=== PATIENT | male | born 1965 | race Caucasian/White ===

== ENCOUNTER 2019-03-21 12:41 | Inpatient (IN) | payer OTHER ==
[2019-03-21 19:25] VITALS: BMI 32.3
--- NOTE | 2019-03-21 19:49 | HP ---
CIWA Score Nausea/Vomitin Muscle Tremors: 2 Anxiety: 2 Agitation: 2 Paroxysmal Sweats: 2 Orientation: 0-Oriented Tacttile Disturbances: 2-Mild Itch/Numbness/Burn Auditory Disturbances: 1-Very Mild Visual Disturbances: 1-Very Mild Sensitivity Headache: 2-Mild CIWA-Ar Total Score: 17 - Admission Criteria [facility] Guidelines: Admission for Medically Managed Detox: Requires at least one of the followin. CIWA greater than 12 2. Seizures within the past 24 hours 3. Delirium tremens within the past 24 hours 4. Hallucinations within the past 24 hours 5. Acute intervention needed for co occurring medical disorder 6. Acute intervention needed for co occurring psychiatric disorder 7. Severe withdrawal that cannot be handled at a lower level of care (continued vomiting, continued diarrhea, abnormal vital signs) requiring intravenous medication and/or fluids 8. Patient presents the following: CIWA greater than 12 Admission Criteria Met: Admission criteria met Admitting History and Physical - Smoking History Smoking history: Current every day smoker Have you smoked in the past 12 months: Yes Aproximately how many cigarettes per day: 10 - Alcohol/Substance Use Hx Alcohol Use: Yes (BEER/VODKA) Admission ROS [facility] Chief Complaint: I need detox Allergies/Adverse Reactions: Allergies Allergy/AdvReac Type Severity Reaction Status Date / Time No Known Allergies Allergy Verified 03/21/19 19:07 History of Present Illness: 53 year old man with alcohol dependence presents for detox. His last treatment at [facility] was in 2017 following which he was incarcerated for 2 years. Exam Limitations: Physical Impairment - Ebola screening Have you traveled outside of the country in the last 21 days: No (NN) Have you had contact with anyone from an Ebola affected area: No Have you been sick,other than usual withdrawal symptoms: No Do you have a fever: No - Review of Systems Constitutional: Diaphoresis, Loss of Appetite, Changes in sleep EENT: reports: Blurred Vision, Nose Congestion Respiratory: reports: Cough Cardiac: reports: No Symptoms Reported GI: reports: Diarrhea, Poor Appetite, Poor Fluid Intake, Abdominal cramping : reports: No Symptoms Reported Musculoskeletal: reports: Back Pain, Joint Pain, Other (severe right hip pain) Integumentary: reports: Sweating Neuro: reports: Headache, Numbness, Tingling, Tremors Endocrine: reports: No Symptoms Reported Hematology: reports: No Symptoms Reported Psychiatric: reports: Anxious, Depressed Other Systems: Reviewed and Negative Patient History - Patient Medical History Hx Anemia: No Hx Asthma: Yes Hx Chronic Obstructive Pulmonary Disease (COPD): No Hx Cancer: No Hx Cardiac Disorders: No Hx Congestive Heart Failure: No Hx Hypertension: Yes (not on meds) Hx Hypercholesterolemia: No Hx Pacemaker: No HX Cerebrovascular Accident: Yes (unable to state period of event) Hx Seizures: No Hx Dementia: No Hx Diabetes: No Hx Gastrointestinal Disorders: No Hx Liver Disease: No Hx Genitourinary Disorders: No Hx Sexually Transmitted Disorders: Yes (gonorrhea at age 24) Hx Renal Disease (ESRD): No Hx Thyroid Disease: No Hx Human Immunodeficiency Virus (HIV): No Hx Hepatitis C: No Hx Depression: No Hx Suicide Attempt: No Hx Schizophrenia: No - Patient Surgical History Past Surgical History: Yes Hx Neurologic Surgery: No Hx Cataract Extraction: No Hx Cardiac Surgery: No Hx Lung Surgery: No Hx Breast Surgery: No Hx Breast Biopsy: No Hx Abdominal Surgery: Yes (hernia repair) Hx Appendectomy: Yes (in 1996) Hx Cholecystectomy: No Hx Genitourinary Surgery: No Hx Section: No Hx Orthopedic Surgery: No Anesthesia Reaction: No - PPD History Previous Implant?: No Documented Results: Negative w/o proof Implanted On Prior [facility] Admission?: No PPD to be Administered?: Yes - Smoking Cessation Smoking history: Current every day smoker Have you smoked in the past 12 months: Yes Aproximately how many cigarettes per day: 20 Hx Chewing Tobacco Use: No Initiated information on smoking cessation: Yes 'Breaking Loose' booklet given: 03/21/19 - Substances abused Alcohol Substance route: Oral Frequency: Daily Amount used: 3 PINTS OF VODKA, 5 BEERS (24OZ EACH) Age of first use: 29 Date of last use: 03/21/19 Heroin Substance route: Inhalation Frequency: Daily Amount used: 3 BAGS Age of first use: 29 Date of last use: 03/19/19 Non-Rx Methadone Substance route: Oral Frequency: Daily Amount used: 50 MG Age of first use: 43 Date of last use: 02/08/19 Marijuana/Hashish Substance route: Smoking Frequency: 3-6 times per week Amount used: $10 BAGS Age of first use: 29 Date of last use: 03/14/19 Admission Physical Exam [facility] - Vital Signs Vital Signs: Vital Signs - 24 hr 03/21/19 03/21/19 19:09 19:33 Temperature 99.9 F H 99.9 F H Pulse Rate 92 H 92 H Respiratory 18 18 Rate Blood Pressure 131/64 131/64 - Physical General Appearance: Yes: No Apparent Distress HEENTM: Yes: Hearing grossly Normal, Normocephalic, Normal Voice, LORRI Respiratory: Yes: Chest Non-Tender, Lungs Clear Neck: Yes: No masses,lesions,Nodules, Supple Breast: Yes: Breast Exam Deferred Cardiology: Yes: Regular Rhythm, Regular Rate, S1, S2 Abdominal: Yes: Normal Bowel Sounds, Soft, Hernia Genitourinary: Yes: Within Normal Limits Back: Yes: Normal Inspection Musculoskeletal: Yes: Back pain, Other (right hip pain) Extremities: Yes: Tremors, Other (bilateral LE stasis changes) Neurological: Yes: dry cleaning manager II-XII NML intact, Fully Oriented, Alert Integumentary: Yes: Moist Lymphatic: Yes: Within Normal Limits - Diagnostic (1) Alcohol dependence, uncomplicated Current Visit: Yes Status: Acute (2) Abdominal hernia Current Visit: Yes Status: Acute Qualifiers: Hernia type: umbilical (3) Right hip pain Current Visit: Yes Status: Chronic (4) Unsteady gait Current Visit: Yes Status: Chronic (5) Nicotine dependence Current Visit: Yes Status: Acute Qualifiers: Nicotine product type: cigarettes Substance use status: uncomplicated Qualified Code(s): F17.210 - Nicotine dependence, cigarettes, uncomplicated Cleared for Admission S - Detox or Rehab [facility] Level of Care: Medically Managed Detox Regimen/Protocol: Librium Claeared for Rehab Admission: No Breathalyzer - Breathalyzer Breathalyzer: 0.074 Urine Drug Screen - Test Device Lot number: [id number] Expiration date: 10/07/20 - Control Is test valid?: Yes - Results Drug screen NEGATIVE: No Urine drug screen results: MET-Methamphetamine, BZO-Benzodiazepines Inpatient Rehab Admission - Rehab Decision to Admit Inpatient rehab admission?: No
[2019-03-21] MEDS ORDERED: NICOTINE POLACRILEX 2 MG GUM BUC PRN (19:55)
[2019-03-21] MEDS ORDERED: MAG HYDROX/AL HYDROX/SIMETH 30 ML UNIT-DOSE CUP PO PRN (19:55)
[2019-03-21] MEDS ORDERED: MENTHOL/PHENOL 1 EACH UD MM PRN (19:55)
[2019-03-21] MEDS ORDERED: METHOCARBAMOL 500 MG TABLET PO PRN (19:55)
[2019-03-21] MEDS ORDERED: hydrOXYzine PAMOATE 25 MG CAPSULE (FP) PO PRN (19:55)
[2019-03-21] MEDS ORDERED: MAGNESIUM HYDROX 2400MG/30ML ORAL SUSPENSION 30 ML CUP PO PRN (19:55)
[2019-03-21] MEDS ORDERED: BISMUTH SUBSALICYLATE 524 MG/30 ML UD PO PRN (19:55)
[2019-03-21] MEDS ORDERED: MAGNESIUM CITRATE 300 ML BOTTLE PO PRN (19:55)
[2019-03-21] MEDS ORDERED: ACETAMINOPHEN 325 MG TABLET (FP) PO PRN (19:55)
[2019-03-21] MEDS: THIAMINE HCL 100 MG TABLET (FP) PO SCH (21:20)
[2019-03-21] MEDS: NICOTINE 14 MG/24 HOURS TOPICAL PATCH TD SCH (21:20)
[2019-03-21] MEDS: chlordiazePOXIDE HCL 25 MG CAPSULE PO SCH (21:21)
[2019-03-21] MEDS: MELATONIN 5 MG TABLETS PO PRN (21:25)
[2019-03-22] MEDS: IBUPROFEN 400 MG TABLET (FP) PO PRN ×2 (06:12→18:03)
[2019-03-22] MEDS: chlordiazePOXIDE HCL 25 MG CAPSULE PO SCH ×3 (06:12→22:03)
[2019-03-22] MEDS: NICOTINE 14 MG/24 HOURS TOPICAL PATCH TD SCH (10:45)
[2019-03-22] MEDS: PRENATAL VITAMINS W/ FOLIC ACID TABLET (FP) PO SCH (10:45)
[2019-03-22] MEDS: chlordiazePOXIDE HCL 10 MG CAPSULE PO PRN (10:45)
[2019-03-22 10:47] LABS: HEMATOCRIT 37.4 % (35.4-49); HEMOGLOBIN 12.2 GM/dL (11.7-16.9); MCH 29.8 pg (25.7-33.7); MCHC 32.6 g/dl (32.0-35.9); MEAN CELL VOLUME 91.5 fl (80-96); MEAN PLT VOLUME 7.9 fl (7.5-11.1); PLATELET COUNT 184 K/MM3 (134-434); RBC 4.08 M/mm3 (4.00-5.60); RDW 17.2 % (11.9-15.9); WHITE BLOOD COUNT 5.2 K/mm3 (4.0-10.0)
[2019-03-22 11:07] LABS: BILIRUBIN,TOTAL 0.8 mg/dL (0.2-1); CALCIUM 8.4 mg/dL (8.5-10.1); CREATININE 0.7 mg/dL (0.55-1.3); POTASSIUM 3.5 mmol/L (3.5-5.1); TOT PROT 6.7 g/dl (6.4-8.2)
--- NOTE | 2019-03-22 15:10 | PN ---
[facility] CIWA - CIWA Score Nausea/Vomitin-No Nausea/No Vomiting Muscle Tremors: 4-Moderate,w/Arms Extend Anxiety: 3 Agitation: 0-Normal Activity Paroxysmal Sweats: 2 Orientation: 2-Disoriented Date<2 days Tacttile Disturbances: 0-None Auditory Disturbances: 1-Very Mild Visual Disturbances: 1-Very Mild Sensitivity Headache: 2-Mild CIWA-Ar Total Score: 15 S Progress Note (SOAP) Subjective: 53 years old male admitted on03/21/19 for alcohol withdrawal sx management treating with librium detox regimen ambulating with cane currently using wheelchair due to arthritis of the knees ate breakfast and lunch resting in bed encourage to attend behavior and psychosocial therapies groups and meeting while in detox Objective: 03/22/19 15:09 Vital Signs Temperature 98.7 F 03/22/19 13:41 Pulse Rate 93 H 03/22/19 13:41 Respiratory Rate 20 03/22/19 13:41 Blood Pressure 128/82 03/22/19 13:41 O2 Sat by Pulse Oximetry (%) Laboratory Last Values WBC 5.2 K/mm3 (4.0-10.0) 03/22/19 07:15 RBC 4.08 M/mm3 (4.00-5.60) 03/22/19 07:15 Hgb 12.2 GM/dL (11.7-16.9) 03/22/19 07:15 Hct 37.4 % (35.4-49) 03/22/19 07:15 MCV 91.5 fl (80-96) 03/22/19 07:15 MCH 29.8 pg (25.7-33.7) 03/22/19 07:15 MCHC 32.6 g/dl (32.0-35.9) 03/22/19 07:15 RDW 17.2 % (11.9-15.9) H 03/22/19 07:15 Plt Count 184 K/MM3 (134-434) 03/22/19 07:15 MPV 7.9 fl (7.5-11.1) 03/22/19 07:15 Sodium 139 mmol/L (136-145) 03/22/19 07:15 Potassium 3.5 mmol/L (3.5-5.1) 03/22/19 07:15 Chloride 105 mmol/L (98-107) 03/22/19 07:15 Carbon Dioxide 26 mmol/L (21-32) 03/22/19 07:15 Anion Gap 8 MMOL/L (8-16) 03/22/19 07:15 BUN 9.0 mg/dL (7-18) 03/22/19 07:15 Creatinine 0.7 mg/dL (0.55-1.3) 03/22/19 07:15 Est GFR (CKD-EPI)AfAm 126.64 03/22/19 07:15 Est GFR (CKD-EPI)NonAf 109.27 03/22/19 07:15 Random Glucose 81 mg/dL (74-106) 03/22/19 07:15 Calcium 8.4 mg/dL (8.5-10.1) L 03/22/19 07:15 Total Bilirubin 0.8 mg/dL (0.2-1) 03/22/19 07:15 AST 31 U/L (15-37) 03/22/19 07:15 ALT 21 U/L (13-61) 03/22/19 07:15 Alkaline Phosphatase 115 U/L (45-117) 03/22/19 07:15 Total Protein 6.7 g/dl (6.4-8.2) 03/22/19 07:15 Albumin 3.0 g/dl (3.4-5.0) L 03/22/19 07:15 RPR Titer Nonreactive (NONREACTIVE) 03/22/19 07:15 lab noted Assessment: 03/22/19 15:09 alcohol withdrawal Plan: librium regimen
[2019-03-22] MEDS: ACETAMINOPHEN 325 MG TABLET (FP) PO PRN (19:21)
[2019-03-22] MEDS ORDERED: hydrOXYzine PAMOATE 25 MG CAPSULE (FP) PO PRN (20:40)
[2019-03-22] MEDS: THIAMINE HCL 100 MG TABLET (FP) PO SCH (22:03)
[2019-03-22] MEDS: MELATONIN 5 MG TABLETS PO PRN (22:03)
[2019-03-23] MEDS ORDERED: chlordiazePOXIDE 5 MG CAPSULE PO SCH (05:00)
[2019-03-23] MEDS: ACETAMINOPHEN 325 MG TABLET (FP) PO PRN (07:09)
[2019-03-23] MEDS: chlordiazePOXIDE HCL 10 MG CAPSULE PO PRN (07:09)
--- NOTE | 2019-03-23 09:42 | PN ---
[facility] CIWA - CIWA Score Nausea/Vomitin-No Nausea/No Vomiting Muscle Tremors: 4-Moderate,w/Arms Extend Anxiety: 3 Agitation: 2 Paroxysmal Sweats: 1-Minimal Palms Moist Orientation: 0-Oriented Tacttile Disturbances: 0-None Auditory Disturbances: 0-None Visual Disturbances: 1-Very Mild Sensitivity Headache: 0-None Present CIWA-Ar Total Score: 11 S Progress Note (SOAP) Subjective: 53 years old male admitted on 03/21/19 for alcohol withdrawal sx management treating with librium detox regimen ambulating with cane steady gait tremor less anxious Objective: 03/23/19 09:45 Vital Signs Temperature 99.0 F 03/23/19 09:14 Pulse Rate 85 03/23/19 09:14 Respiratory Rate 18 03/23/19 09:14 Blood Pressure 128/86 03/23/19 09:14 O2 Sat by Pulse Oximetry (%) Laboratory Last Values WBC 5.2 K/mm3 (4.0-10.0) 03/22/19 07:15 RBC 4.08 M/mm3 (4.00-5.60) 03/22/19 07:15 Hgb 12.2 GM/dL (11.7-16.9) 03/22/19 07:15 Hct 37.4 % (35.4-49) 03/22/19 07:15 MCV 91.5 fl (80-96) 03/22/19 07:15 MCH 29.8 pg (25.7-33.7) 03/22/19 07:15 MCHC 32.6 g/dl (32.0-35.9) 03/22/19 07:15 RDW 17.2 % (11.9-15.9) H 03/22/19 07:15 Plt Count 184 K/MM3 (134-434) 03/22/19 07:15 MPV 7.9 fl (7.5-11.1) 03/22/19 07:15 Sodium 139 mmol/L (136-145) 03/22/19 07:15 Potassium 3.5 mmol/L (3.5-5.1) 03/22/19 07:15 Chloride 105 mmol/L (98-107) 03/22/19 07:15 Carbon Dioxide 26 mmol/L (21-32) 03/22/19 07:15 Anion Gap 8 MMOL/L (8-16) 03/22/19 07:15 BUN 9.0 mg/dL (7-18) 03/22/19 07:15 Creatinine 0.7 mg/dL (0.55-1.3) 03/22/19 07:15 Est GFR (CKD-EPI)AfAm 126.64 03/22/19 07:15 Est GFR (CKD-EPI)NonAf 109.27 03/22/19 07:15 Random Glucose 81 mg/dL (74-106) 03/22/19 07:15 Calcium 8.4 mg/dL (8.5-10.1) L 03/22/19 07:15 Total Bilirubin 0.8 mg/dL (0.2-1) 03/22/19 07:15 AST 31 U/L (15-37) 03/22/19 07:15 ALT 21 U/L (13-61) 03/22/19 07:15 Alkaline Phosphatase 115 U/L (45-117) 03/22/19 07:15 Total Protein 6.7 g/dl (6.4-8.2) 03/22/19 07:15 Albumin 3.0 g/dl (3.4-5.0) L 03/22/19 07:15 RPR Titer Nonreactive (NONREACTIVE) 03/22/19 07:15 lab noted Assessment: 03/23/19 09:45 alcohol withdrawal Plan: librium regimen
[2019-03-23] MEDS: PRENATAL VITAMINS W/ FOLIC ACID TABLET (FP) PO SCH (10:13)
[2019-03-23] MEDS: NICOTINE 14 MG/24 HOURS TOPICAL PATCH TD SCH (10:14)
[2019-03-23] MEDS: IBUPROFEN 400 MG TABLET (FP) PO PRN (10:15)
[2019-03-23 13:08] VITALS: BP 126/86; PULSE 89; TEMP 99.4
[2019-03-24] MEDS ORDERED: chlordiazePOXIDE HCL 10 MG CAPSULE PO PRN
[2019-03-24] MEDS ORDERED: chlordiazePOXIDE HCL 10 MG CAPSULE PO SCH (05:00)
[2019-03-25] MEDS ORDERED: chlordiazePOXIDE HCL 10 MG CAPSULE PO ONE (05:00)
== END 2019-03-23 13:08 | disposition left against medical advice (07) | DRG 770 ==
LOC: YASAS 12:41 → Y3N 20:33
PROVIDERS: ADMIT Allergy & Immunology; ATTEND Allergy & Immunology
PROC: HZ2ZZZZ Detoxification Services for Substance Abuse Treatment (ICD-10-PCS; principal; 2019-03-21)
DX: F10.230 Alcohol dependence with withdrawal, uncomplicated (principal); F17.210 Nicotine dependence, cigarettes, uncomplicated; R26.81 Unsteadiness on feet; M25.551 Pain in right hip; Z87.438 Personal history of other diseases of male genital organs
CPT/HCPCS: 36415; 80053; 85027; 86593